=== PATIENT | female | born 1945 | race Caucasian/White ===

== ENCOUNTER 2022-11-30 06:11 | Inpatient (IN) ==
--- NOTE | 2022-11-03 11:09 | PAT Medication Instructions ---
Medication Instructions Date of Service November 03, 2022 Home Medications acyclovir 400 mg tablet 400 mg PO BID ascorbic acid (vitamin C) 1,000 mg tablet (Vitamin C) 1 g PO BID cholecalciferol (vitamin D3) 125 mcg (5,000 unit) tablet (Vitamin D3) 125 mcg PO QAM coffee extract 100 mg-phosphatidyl serine 100 mg capsule (Neuriva Original) 1 cap PO QAM ferrous sulfate 325 mg (65 mg iron) capsule,extended release 65 mg PO QAM lutein 20 mg tablet 20 mg PO QAM magnesium oxide 250 mg PO QAM omeprazole 20 mg capsule,delayed release 20 mg PO QAM pantethine 300 mg tablet,extended release 300 mg PO BID vitamin E 400 unit tablet 400 mg PO QPM zinc 25 mg tablet 25 mg PO HS STOP taking 2 weeks before surgery (or as soon as possible if surgery is within 2 weeks) coffee extract 100 mg-phosphatidyl serine 100 mg capsule (Neuriva Original) 1 cap PO QAM lutein 20 mg tablet 20 mg PO QAM pantethine 300 mg tablet,extended release 300 mg PO BID vitamin E 400 unit tablet 400 mg PO QPM DO NOT take the morning of surgery ascorbic acid (vitamin C) 1,000 mg tablet (Vitamin C) 1 g PO BID cholecalciferol (vitamin D3) 125 mcg (5,000 unit) tablet (Vitamin D3) 125 mcg PO QAM ferrous sulfate 325 mg (65 mg iron) capsule,extended release 65 mg PO QAM magnesium oxide 250 mg PO QAM Take morning of surgery With a small sip of water, OTHERWISE NOTHING TO EAT OR DRINK AFTER MIDNIGHT: acyclovir 400 mg tablet 400 mg PO BID omeprazole 20 mg capsule,delayed release 20 mg PO QAM Take evening before surgery acyclovir 400 mg tablet 400 mg PO BID ascorbic acid (vitamin C) 1,000 mg tablet (Vitamin C) 1 g PO BID zinc 25 mg tablet 25 mg PO HS Other Notes If you have any questions please call us at [phone] or [phone] or [phone] or [phone]
--- NOTE | 2022-11-09 10:50 | Anesthesiology Consultation ---
Date of Service November 09, 2022 Assessment & Plan (1) Encounter for pre-operative examination: - awaiting [facility] PCP pre-operative appointment 11/11/22. - no fentanyl. Patient states she does not want fentanyl administered. This was marked in EMR and Stella with surgeon's office made aware. - Pt denies additional episodes of chest discomfort since regularly taking omeprazole. - PCP office note 10/18/22 [facility]: "...hospital follow-up...midsternal chest pain pressure heaviness that radiated into her back and into her jaw...given nitroglycerin with resolution of pain. Troponin in ED was 8 and then 6...with eating, she is still getting some chest pain and epigastric pain...started omeprazole about 4 days ago which is helping...continues to decline taking statin...ordered an Apo B and HS CRP..." - discharge summary 10/11/22 [facility]: "...admitted to a telemetry bed...remained chest-pain free...consulted cardiology who recommended a stress echo...negative...LDL was greater than 170...patient is hesitant to start a statin..." Chart Review Chart Review: Pending: Refer to Additional Notes / Consult section and Patient seen in Pre Admission Testing Teaching & Discussion Pre-Anesthesia Teaching/Discussion Notes: Instructed NPO after midnight before surgery, except medications with 15 cc of water. Medication instructions provided according to the PAT guidelines. History Surgery Operation Date: 11/30/22 07:45 Proposed Procedures p L4-S1 Revision Decompression and Fusion, Spinal Cord Monitoring - Srinivasa Johns DO Height/Weight Height: 5 ft 2 in Weight: 72.2 kg Allergies Allergy/AdvReac Type Severity Reaction Status Date / Time fentanyl AdvReac Severe patient Verified 11/09/22 10:48 does not want fentanyl, denies h/o allergy or rxn Medications Home Medications Medication Instructions Recorded Confirmed Last Taken acyclovir 400 mg tablet 400 mg PO BID 11/03/22 11/03/22 Unknown ascorbic acid (vitamin C) 1,000 mg 1 g PO BID 11/03/22 11/03/22 Unknown tablet (Vitamin C) cholecalciferol (vitamin D3) 125 125 mcg PO QAM 11/03/22 11/03/22 Unknown mcg (5,000 unit) tablet (Vitamin D3) coffee extract 100 mg-phosphatidyl 1 cap PO QAM 11/03/22 11/03/22 Unknown serine 100 mg capsule (Neuriva Original) ferrous sulfate 325 mg (65 mg 65 mg PO QAM 11/03/22 11/03/22 Unknown iron) capsule,extended release lutein 20 mg tablet 20 mg PO QAM 11/03/22 11/03/22 Unknown magnesium oxide 250 mg PO QAM 11/03/22 11/03/22 Unknown omeprazole 20 mg capsule,delayed 20 mg PO QAM 11/03/22 11/03/22 Unknown release pantethine 300 mg tablet,extended 300 mg PO BID 11/03/22 11/03/22 Unknown release vitamin E 400 unit tablet 400 mg PO QPM 11/03/22 11/03/22 Unknown zinc 25 mg tablet 25 mg PO HS 11/03/22 11/03/22 Unknown Past Medical History Medical History (Updated 11/09/22 @ 10:44 by Patricia Noyola PA-C) Acid reflux controlled, stable per pt CKD (chronic kidney disease) stage 3, GFR 30-59 ml/min Elevated cholesterol no meds Lichen sclerosus reason for daily acyclovir Restless leg syndrome Patient denies h/o stroke, seizures, heart attack, heart failure, DM, HTN, blood clots/DVTs or blood transfusions. Exercise / Class Metabolic Activity II 4-5 Yardwork/Stairs/Walk up hill (denies chest discomfort or shortness of breath with 1 FOS) Past Family History Family History Other No family history of adverse response to anesthesia Past Surgical History Surgical History H/O cervical spine surgery bone spurs removed>good rom History of carpal tunnel release right History of cataract surgery left/right History of colonoscopy History of esophagogastroduodenoscopy (EGD) History of lumbar surgery bone spurs removed History of tooth extraction S/P decompression of ulnar nerve at elbow right Past Anesthesia History No Hx of Anesthesia Complications and No Family Hx of Anesthesia Complications History of PONV No Hx of PONV and No Hx of Motion Sickness Social History Smoking Status: Never smoker Do You Dip or Chew Tobacco: No Hx Alcohol Use: No substance use type: does not use Review of Systems Snoring, denies witnessed apneas. Patient denies chest pain, shortness of breath, dyspnea on exertion, fever, c hills, cough, wheezing, or palpitations. Physical Exam Vital Signs Vitals BP 130/81 P 72 TEMP 98.1 SP02 98% on RA RESP 17 Physical Patient resting comfortably in chair in no acute distress, alert and oriented, responding appropriately throughout visit Full cervical extension range of motion without pain TMD 3.5 finger breadths Mallampati Score 2, small oral opening Dentition: implant left upper side, denies chipped or loose teeth, caps/crowns, or bridges Lungs: normal respiratory effort. Good air movement, clear throughout to auscultation, no adventitious breath sounds Cardiac: regular rate and rhythm, no murmurs noted Carotid arteries: negative bruit bilat Lab Results Anesthesia Preop Results Results Anesthesia Widget: WBC 4.87 K/ul (4.8-10.8) 11/09/22 Hgb 12.7 g/dl (12.0-16.0) 11/09/22 Hct 37.3 % (37.0-47.0) 11/09/22 Plt 191 K/uL (130-400) 11/09/22 PT 10.3 Seconds (9.0-12.0) 11/09/22 PTT 27.0 Seconds (21.0-31.0) 11/09/22 INR 0.9 (0.9-1.1) 11/09/22 Urine Color Yellow 11/09/22 Urine Appearance Clear (Clear) 11/09/22 Urine pH 8.0 (4.5-7.5) H 11/09/22 Urine Specific [place] 1.014 (1.000-1.030) 11/09/22 Urine Protein Negative (Negative) 11/09/22 Urine Glucose (UA) Negative (Negative) 11/09/22 Urine Ketones Negative (Negative) 11/09/22 Urine Blood Negative (Negative) 11/09/22 Urine Nitrite Negative (Negative) 11/09/22 Urine Bilirubin Negative (Negative) 11/09/22 Urine Urobilinogen Negative (Negative) 11/09/22 Urine Leukocyte Esterase Negative (Negative) 11/09/22 Blood Type A Positive 11/09/22 Antibody Screen NEGATIVE 11/09/22 Testing Laboratory Results 10/11/2022 SODIUM: 139 POTASSIUM: 4.2 CHLORIDE: 106 CO2: 25 BUN: 15 CREATININE: 0.9 GLUCOSE: 110 10/10/22 A1c: 5.6% Electrocardiogram Date: 10/10/22 NSR, rate 65 bpm High QRS voltage may be normal variant or due to lve Chest X-Ray Date: 10/10/22 *1view* No acute or suspicious findings Stress Test Date: 10/11/22 Negative for inducible ischemia MPHR 103% METS 8 Occasional PVCs EF 55-59% Mild aortic valve regurgitation Mild tricuspid regurgitation
[~2022-11-30 06:11] MED LIST: ACETAMINOPHEN 500 MG TAB PO SCH; CeleBREX 200 MG CAP PO SCH; GABAPENTIN 300 MG CAP PO SCH; LR 15ML/HR IV SCH; LR 60ML/HR IV SCH; ceFAZolin 2000MG 2,000 MG/15 ML SYR IV SCH
[2022-11-30] MEDS ORDERED: BUPIVACAINE/EPINEPHRINE 0.25% 1:200,000 30 ML VIAL ONE (07:07)
[2022-11-30] MEDS ORDERED: ceFAZolin 330 MG/ML 1 GM VIAL ONE (07:08)
[2022-11-30] MEDS ORDERED: MIDAZOLAM HCL 1 MG/ML 2ML VIAL ONE (07:19)
[2022-11-30] MEDS ORDERED: fentaNYL citrate PF 100 MCG/2 ML VIAL ONE (07:19)
[2022-11-30] MEDS ORDERED: NALOXONE HCL 0.4 MG/1 ML VIAL/CARP IV PRN ×2 (07:19→11:35)
[2022-11-30] MEDS ORDERED: HYDROmorphone INJ 1 MG/ML SYRINGE IV PRN ×2 (07:19→11:35)
[2022-11-30] MEDS ORDERED: LABETALOL HCL IV 5 MG/ML 20ML IV PRN (07:19)
[2022-11-30] MEDS ORDERED: ePHEDrine sulfate 50 MG/ML AMP IV PRN (07:19)
[2022-11-30] MEDS ORDERED: ATROPINE SULFATE 0.1 MG/ML 10ML SYR IV PRN (07:19)
[2022-11-30] MEDS ORDERED: PROMETHAZINE HCL 12.5 MG in SODIUM CHLORIDE 0.9% 50 ML IV PRN ×2 (07:19→11:35)
[2022-11-30] MEDS ORDERED: FLUMAZENIL 0.1 MG/1 ML 10 ML VIAL IV PRN (07:19)
[2022-11-30] MEDS ORDERED: ONDANSETRON INJ 2 MG/ML 2 ML VIAL IV PRN ×2 (07:19→11:35)
[2022-11-30] MEDS ORDERED: PROPOFOL IV EMULSION 10 MG/ML 20 ML VIAL IV ONE (07:31)
[2022-11-30] MEDS ORDERED: ONDANSETRON INJ 2 MG/ML 2 ML VIAL ONE (07:31)
[2022-11-30] MEDS ORDERED: LIDOCAINE 2% 2 ML VIAL/AMP(20MG/ML) INFIL ONE (07:31)
[2022-11-30] MEDS ORDERED: DEXAMETHASONE SOD INJ 4 MG/ML VIAL ONE (07:31)
--- NOTE | 2022-11-30 07:36 | History & Physical Bridge Note ---
Date of Service November 30, 2022 History & Physical Bridge Note I have examined the patient, reviewed the History & Physical and in the interval since the performance of the History & Physical I have noted the following changes of clinical significance: no changes noted
--- NOTE | 2022-11-30 07:36 | History & Physical Report ---
Date of Service November 30, 2022 Assessment & Plan (1) Neurogenic claudication due to lumbar spinal stenosis: History of Present Illness Chief Complaint: Back and bilateral leg pain Primary Care Provider: Veronica Amaral PA-C This is a 77-year-old female presents with chronic persistent back and leg pain after failing course of nonoperative care she is here for surgical intervention. Allergies Allergy/AdvReac Type Severity Reaction Status Date / Time fentanyl AdvReac Severe patient Verified 11/30/22 06:33 does not want fentanyl, denies h/o allergy or rxn Home Medications Medication Instructions Recorded Confirmed Type acyclovir 400 mg tablet 400 mg PO BID 11/03/22 11/30/22 History ascorbic acid (vitamin C) 1,000 mg 1 g PO BID 11/03/22 11/30/22 History tablet (Vitamin C) cholecalciferol (vitamin D3) 125 125 mcg PO QAM 11/03/22 11/30/22 History mcg (5,000 unit) tablet (Vitamin D3) coffee extract 100 mg-phosphatidyl 1 cap PO QAM 11/03/22 11/30/22 History serine 100 mg capsule (Neuriva Original) ferrous sulfate 325 mg (65 mg 65 mg PO QAM 11/03/22 11/30/22 History iron) capsule,extended release lutein 20 mg tablet 20 mg PO QAM 11/03/22 11/30/22 History magnesium oxide 250 mg PO QAM 11/03/22 11/30/22 History omeprazole 20 mg capsule,delayed 20 mg PO QAM 11/03/22 11/30/22 History release vitamin E 400 unit tablet 400 mg PO QPM 11/03/22 11/30/22 History zinc 25 mg tablet 25 mg PO HS 11/03/22 11/30/22 History Past Med/Surg History Medical History (Updated 11/30/22 @ 07:36 by Srinivasa Johns DO) Acid reflux controlled, stable per pt CKD (chronic kidney disease) stage 3, GFR 30-59 ml/min Elevated cholesterol no meds Lichen sclerosus reason for daily acyclovir Restless leg syndrome Surgical History H/O cervical spine surgery bone spurs removed>good rom History of carpal tunnel release right History of cataract surgery left/right History of colonoscopy History of esophagogastroduodenoscopy (EGD) History of lumbar surgery bone spurs removed History of tooth extraction S/P decompression of ulnar nerve at elbow right Family History Other No family history of adverse response to anesthesia Social History Smoking Status: Never smoker Second Hand Exposure: Yes (in the past "late smoked"); Do You Dip or Chew Tobacco: No; Hx Alcohol Use: No Preferred Language: British Director Financial Systems Required: No Beliefs That Will Affect Care: None Current Living Situation: Spouse Feels Safe at Home: Yes Safety Concerns: Feels Safe At This Time Assistive Devices: Glasses Physical Exam Physical Exam: Patient is alert and oriented Heart regular rhythm Lungs clear Results & Data Results & Data Vital Signs (Past 12 Hours) Vital Signs Temp Pulse Resp BP Pulse Ox O2 Del Method 11/30/22 06:36 37 C 70 18 128/72 98 Room Air
--- NOTE | 2022-11-30 07:43 | History & Physical Bridge Note ---
Date of Service November 30, 2022 History & Physical Bridge Note I have examined the patient, reviewed the History & Physical and in the interval since the performance of the History & Physical I have noted the following changes of clinical significance: no changes noted Revision decompression fusion L4-S1
[2022-11-30] MEDS ORDERED: FLOSEAL HEMOSTATIC MATRIX 10ML TOP ONE (08:16)
[2022-11-30] MEDS ORDERED: SUGAMMADEX SODIUM 200 MG/2 ML VIAL IV ONE (09:02)
--- NOTE | 2022-11-30 09:07 | Operative Report ---
Post Operative Report Pre & Post Diagnosis Operation Date: 11/30/22 07:45 Pre-Op Diagnosis: Neurogenic claudication due to lumbar spinal stenosis Lumbar spondylolisthesis L4-5 Post-Op Diagnosis: Same I identified the patient and participated in the time-out.: Yes Procedure Operation Date: 11/30/22 07:45 Actual Procedures #1 revision decompression bilateral medial facetectomies and foraminotomies L3- L4 L4-5. #2 posterior spinal fusion L4-5. #3 placement posterior instrumentation L4-5 per #4 interbody fusion L4-5 #5 placement of Spira 13 x 26 mm cage at L4-5 per #6 placement locally harvested morselized autograft in the posterior gutters. #7 placement of I factor combined with V toss in the posterior gutters and interbody space. Surgeon Srinivasa Johns, Protection Manager Elina Barnes Estimated Blood Loss 50 Findings Consistent with Post-Op Diagnosis Specimens None Indications This is a 77-year-old female presents above-mentioned diagnosis after failed course of nonoperative care is here for surgical invention Description of Procedure Patient was met with identified informed consent obtained. Patient was then taken to the operative suite underwent a patient placed in a prone position on the [place] table top Jay[place]ob frame. All bony promises well-padded eyes inspect ed to ensure no external pressure placed upon the. This point the lumbar spine was prepped and draped in a sterile fashion. Sharp dissection with the assistance of Bovie cautery to form down to and exposing the remaining lamina and transverse processes of L4-L5. I then performed a revision complete laminectomy of L4 partial laminectomy of L3 including bilateral medial facetectomies and foraminotomies addressing severe spinal stenosis. Pedicle screws were then placed in L4-5 bilaterally with assistance of fluoroscopy and appropriately sized ren placed. By way of a trans foraminal approach on the right a complete discectomy of L for L5 was performed endplates guided to subcortically bone and a 13 x 26 mm Spira cage with I factor tapped the position. The rods were then compressed locked into final position bilaterally. The transverse processes of L4-L5 then burred to subcortical bleeding bone. I factor bone of the test and locally harvested morselized autograft was placed in the posterior gutters. 15 round MIRIAN drain inserted. The incision was then closed with 1 Vicryl to fascia 2-0 Vicryl subcutaneously and 4 Monocryl for final skin closure. Steri-Strips sterile dressing placed. Patient waken taken to PACU stable condition. Please note spinal cord monitoring was utilized at the procedure no changes noted. Lastly Elina Barnes was present at the entire surgery and while the patient positioning complex portion of the surgery and fascial closure. Please note we had considered the L5-S1 level for fusion. It was very stable intraoperatively and demonstrated no evidence of vacuum phenomenon or stenosis and subsequently elected to preserve this region. I attest to the content of the Intraoperative Record and any orders documented therein. Any exceptions are noted below.
[2022-11-30] MEDS: fentaNYL citrate PF 100 MCG/2 ML VIAL IV PRN ×4 (09:41→09:56)
--- NOTE | 2022-11-30 10:00 | Fluoroscopy Report ---
FL lumbar spine 2-3V CLINICAL HISTORY: L4-L5 DECOMP/FUSION COMPARISON STUDY: None. FLUOROSCOPY TIME: 16 seconds. Ka, r: 11.18 mGy FLUOROSCOPIC IMAGES: 2 FINDINGS: Fluoroscopy was provided during L4-L5 discectomy, posterior decompression and bilateral ped icle screw fusion. The hardware is intact. IMPRESSION: Fluoroscopy provided during L4-L5 discectomy, posterior decompression and bilateral pedi teressa screw fusion. ACT 112: Negative or not required by law. Electronically signed by: Nithin Solares M.D. 11/30/2022 9:59 AM
--- NOTE | 2022-11-30 10:10 | Anesthesiology Progress Note ---
Date of Service November 30, 2022 Anesthesia Post Procedure Vital Signs Vital Signs: Temp Pulse Pulse Resp BP Pulse Ox O2 Del Method 11/30/22 10:05 36.3 C L 76 14 130/71 98 Nasal Cannula 11/30/22 09:55 82 20 135/79 99 Nasal Cannula 11/30/22 09:45 79 12 145/76 H 92 Room Air 11/30/22 09:35 93 H 15 152/91 H 100 Oxymask 11/30/22 09:25 36.8 C 96 H 16 161/80 H 99 Oxymask 11/30/22 06:36 37 C 70 18 128/72 98 Room Air O2 Flow Rate 11/30/22 10:05 2 11/30/22 09:55 2 11/30/22 09:45 11/30/22 09:35 4 11/30/22 09:25 6 11/30/22 06:36 Pain Intensity Lower Back: Pain Intensity: 2 Transfer of Care Handoff Completed per policy Notes Mental Status: alert / awake / arousable Patient Amnestic to Procedure: Yes Nausea / Vomiting: adequately controlled Pain: adequately controlled Airway Patency, RR, SpO2: stable & adequate BP & HR: stable & adequate Hydration State: stable & adequate Anesthetic Complications: no major complications apparent
[2022-11-30] MEDS ORDERED: hydrOXYzine HCl 25 MG TAB PO PRN (11:35)
[2022-11-30] MEDS ORDERED: LORazepam 2 MG/1 ML VIAL IV PRN (11:35)
[2022-11-30] MEDS ORDERED: DO NOT ADMINISTER FLU VACCINE PRN (11:35)
[2022-11-30] MEDS ORDERED: traMADol HCL 50 MG TABLET PO PRN (11:35)
[2022-11-30] MEDS ORDERED: DO NOT ADMINISTER PNEUMOCOCCAL VACCINE PRN (11:35)
[2022-11-30] MEDS ORDERED: METOCLOPRAMIDE HCL INJ 5 MG/ML 2 ML VIAL IV PRN (11:35)
[2022-11-30] MEDS ORDERED: LORazepam 0.5 MG TAB PO PRN (11:35)
[2022-11-30] MEDS ORDERED: diphenhydrAMINE Capsule 25 MG CAP PO PRN (11:35)
[2022-11-30] MEDS ORDERED: ACETAMINOPHEN 500 MG TAB PO PRN (11:35)
[2022-11-30] MEDS ORDERED: ONDANSETRON 4 MG OD TAB PO PRN (11:35)
[2022-11-30] MEDS ORDERED: SOD PHOSPHATE/SOD BIPHOSPHATE ENEMA 132 ML BTL PR PRN (11:35)
[2022-11-30] MEDS ORDERED: FAMOTIDINE 20 MG TAB PO PRN (11:35)
[2022-11-30] MEDS ORDERED: ACETAMINOPHEN 1,000 MG/100 ML VIAL IV PRN (11:35)
[2022-11-30] MEDS ORDERED: ALUMINUM/MAGNESIUM SUSP 30 ML UDC PO PRN (11:35)
[2022-11-30] MEDS ORDERED: MAGNESIUM HYDROXIDE SUSP 30 ML UDC PO PRN (11:35)
[2022-11-30] MEDS ORDERED: bisacodyL 10 MG SUPP PR PRN (11:35)
[2022-11-30] MEDS ORDERED: HYDROmorphone INJ 0.5 MG/0.5 ML SYR IV PRN (11:35)
[2022-11-30] MEDS: oxyCODONE HCL IR 5 MG TAB (IMMEDIATE RELEASE) PO PRN ×3 (12:21→21:38)
[2022-11-30] MEDS: LACTATED RINGER'S 1,000 ML IV SCH ×2 (12:22→21:40)
--- NOTE | 2022-11-30 12:42 | Hospitalist Consultation ---
Date of Consultation November 30, 2022 Assessment & Plan (1) Neurogenic claudication due to lumbar spinal stenosis: - Pain management, bowel regimen and DVT ppx per the primary team - PT/OT consults - Follow am CBC to monitor for acute blood loss, last hgb was 12.7, recheck with am labs - Ambulate to chair this evening, anticipate caceres out this evening (2) CKD (chronic kidney disease) stage 3, GFR 30-59 ml/min: - Chronic, Stable - Check BMP today as none in records here to establish a baseline (3) Lichen sclerosus: - May continue acyclovir 400 mg BID for such - Chronic, stable DVT ppx: teds, scd CODE: FULL Thank you for involving us in the care of Mrs. Parikh. Please do not hesitate to call with questions or concerns. At this time medicine service will follow along. Supervising Physician Co-Signing Physician Notes I have seen and discussed the case with the collaborating BRADEN. I agree with the above H&P. I have reviewed and confirmed the patients medical history, the findings on physical examination, and the patients diagnosis and treatment plan with Devika FELICIANO and agree with the information documented. In short, Ms Parikh is a 77 year old woman with stable chronic comobidities now s/p spinal fusion on 11/30 for whom comanagement was consulted for medication management. At this time, Ms. Parikh can resume all home medications as prescribed. Dispo contingent on PT/OT and discretion of Ortho-spine service. History of Present Illness Reason for Consultation: Post op medical management Requesting Physician: Dr. Johns Attending Physician: Srinivasa Johns, History of Present Illness This is a 77 yo F with PMHx of CKD stage III, HLD, lichen sclerosis, restless leg, GERD, presents to the hospital for routine revision decompression bilat medial facetectomies and foraminotomies L3-L5, lumbar decompression fusion of L4-L5 by Dr. Johns on 11/30/22. PT has been taking acyclovir for lichen sclerosis twice daily for about 10 years from her PCP. Pt reports doing well. She has mild back pain with ache, but no other pain. No numbness, tingling into lower extremities, pt can bend both knees. Tolerated lunch without issues, last BM was this morning. She uses metamucil twice daily at baseline for issues with constipation, and requests this is ordered during her stay. She denies any other acute complaints. Allergies Allergy/AdvReac Type Severity Reaction Status Date / Time fentanyl AdvReac Severe patient Verified 11/30/22 06:33 does not want fentanyl, denies h/o allergy or rxn Home Medications Medication Instructions Recorded Confirmed Type acyclovir 400 mg tablet 400 mg PO BID 11/03/22 11/30/22 History ascorbic acid (vitamin C) 1,000 mg 1 g PO BID 11/03/22 11/30/22 History tablet (Vitamin C) cholecalciferol (vitamin D3) 125 125 mcg PO QAM 11/03/22 11/30/22 History mcg (5,000 unit) tablet (Vitamin D3) coffee extract 100 mg-phosphatidyl 1 cap PO QAM 11/03/22 11/30/22 History serine 100 mg capsule (Neuriva Original) ferrous sulfate 325 mg (65 mg 65 mg PO QAM 11/03/22 11/30/22 History iron) capsule,extended release lutein 20 mg tablet 20 mg PO QAM 11/03/22 11/30/22 History magnesium oxide 250 mg PO QAM 11/03/22 11/30/22 History omeprazole 20 mg capsule,delayed 20 mg PO QAM 11/03/22 11/30/22 History release vitamin E 400 unit tablet 400 mg PO QPM 11/03/22 11/30/22 History zinc 25 mg tablet 25 mg PO HS 11/03/22 11/30/22 History oxycodone 5 mg tablet 5 mg PO Q6H PRN pain #30 tabs 11/30/22 Rx psyllium husk 3.4 gram/5.4 gram 1 tsp PO BID 11/30/22 11/30/22 History oral powder (Metamucil) tramadol 50 mg tablet 50 mg PO Q6H PRN pain, moderate 11/30/22 Rx #30 tabs Patient History Medical History (Updated 11/30/22 @ 13:25 by Vale Fortune PA-C) Acid reflux controlled, stable per pt CKD (chronic kidney disease) stage 3, GFR 30-59 ml/min Elevated cholesterol no meds Lichen sclerosus reason for daily acyclovir Restless leg syndrome Surgical History H/O cervical spine surgery bone spurs removed>good rom History of carpal tunnel release right History of cataract surgery left/right History of colonoscopy History of esophagogastroduodenoscopy (EGD) History of lumbar surgery bone spurs removed History of tooth extraction S/P decompression of ulnar nerve at elbow right Family History Other No family history of adverse response to anesthesia Social History Smoking Status: Never smoker Second Hand Exposure: Yes (in the past "late smoked"); Do You Dip or Chew Tobacco: No; Hx Alcohol Use: No Preferred Language: Hungarian Dental Assistant Medical Assistant Required: No Beliefs That Will Affect Care: None Current Living Situation: Spouse Feels Safe at Home: Yes Safety Concerns: Feels Safe At This Time Assistive Devices: Glasses Review of Systems Review of Systems: Constitutional: No fever, sweats or chills Eyes: No diplopia, no worsening or blurred vision ENT: normal hearing, no trouble swallowing Respiratory: No cough, sputum, dyspnea at rest or on exertion Cardiovascular: No chest pain, tightness or palpitations Abdomen: No pain, nausea, vomiting, diarrhea or constipation Musculoskeletal: No joint pain, calf pain, swelling Back: ache in lower back, no other pain Neurologic: No weakness, numbness/tingling, or balance problems Psychiatric: No anxiety or depression Skin: No rash or itch Physical Exam Physical Exam: General: awake, alert, no apparent distress Head: Normocephalic, atraumatic ENT: PERRL, EOMI, no pharyngeal exudate, mucous membranes moist Chest: Clear to auscultation, on room air, no adventitious breath sounds Cardiac: Regular rate and rhythm, no murmur, no JVD, normal peripheral pulses, good capillary refill Abdominal: NABS x 4 quadrants, soft, nondistended, nontender to palpation, no rebound or guarding Back: dressing c/d/i, MIRIAN drain in place draining bloody outs Extremities: Normal inspection, no peripheral edema or erythema, calfs nontender to palpation Psych: Normal mood and affect Neuro: AAO x 3, strength intact bilaterally and rated 5/5, no motor deficits, speech is clear, no peripheral sensory deficits Results & Data Results & Data Vital Signs (Past 12 Hours) Vital Signs Temp Pulse Pulse Resp BP Pulse Ox O2 Del Method 11/30/22 12:28 36.4 C L 79 15 145/72 H 95 Room Air 11/30/22 11:57 36.3 C L 73 16 134/65 94 Room Air 11/30/22 11:25 36.4 C L 67 16 127/67 94 Room Air 11/30/22 11:15 84 16 124/69 93 Room Air 11/30/22 11:00 64 16 134/66 93 Room Air 11/30/22 10:45 73 18 134/68 93 Room Air 11/30/22 10:30 70 20 131/71 93 Room Air 11/30/22 10:15 78 22 135/69 99 Nasal Cannula 11/30/22 10:05 36.3 C L 76 14 130/71 98 Nasal Cannula 11/30/22 09:55 82 20 135/79 99 Nasal Cannula 11/30/22 09:45 79 12 145/76 H 92 Room Air 11/30/22 09:35 93 H 15 152/91 H 100 Oxymask 11/30/22 09:25 36.8 C 96 H 16 161/80 H 99 Oxymask 11/30/22 06:36 37 C 70 18 128/72 98 Room Air O2 Flow Rate 11/30/22 12:28 11/30/22 11:57 11/30/22 11:25 11/30/22 11:15 11/30/22 11:00 11/30/22 10:45 11/30/22 10:30 11/30/22 10:15 2 11/30/22 10:05 2 11/30/22 09:55 2 11/30/22 09:45 11/30/22 09:35 4 11/30/22 09:25 6 11/30/22 06:36
[2022-11-30] MEDS: ceFAZolin 2000MG 2,000 MG/15 ML SYR IV SCH ×2 (15:59→23:57)
[2022-11-30] MEDS ORDERED: NON-FORMULARY MEDICATION (Zinc 25 mg Tablet) PO SCH (21:00)
[2022-11-30] MEDS: DOCUSATE SODIUM/SENNA 50/8.6MG TAB PO SCH (21:32)
[2022-11-30] MEDS: TOCOPHERYL, DL-ALPHA 400 UNITS 180 MG CAP PO SCH (21:32)
[2022-11-30] MEDS: ASCORBIC ACID 500 MG TAB PO SCH (21:32)
[2022-11-30] MEDS: ACYCLOVIR 400 MG TAB PO SCH (21:33)
[2022-11-30] MEDS: PSYLLIUM or GUAR GUM FIBER POWDER PACKET PO SCH (22:00)
[2022-12-01] MEDS: oxyCODONE HCL IR 5 MG TAB (IMMEDIATE RELEASE) PO PRN ×3 (05:31→21:19)
[2022-12-01] MEDS ORDERED: POLYETHYLENE (MIRALAX) 17 GM PACK PO SCH (06:00)
[2022-12-01 06:51] LABS: Basophils # (auto) 0.02 K/uL (0.00-0.20); Basophils % (auto) 0.2 %; Eosinophils # (auto) 0.05 K/uL (0.00-0.50); Eosinophils % (auto) 0.5 %; Hematocrit (blood only) 32.6 % (37.0-47.0); Hemoglobin 11.2 g/dl (12.0-16.0); Immature Granulocytes # (auto) 0.04 K/uL (0.01-0.20); Immature Granulocytes % (auto) 0.4 %; Lymphocytes # (auto) 1.46 K/uL (1.20-3.40); Lymphocytes % (auto) 13.6 %; Mean Corpuscular Hemoglobin 31.5 pg (25.0-34.0); Mean Corpuscular Hgb Conc 34.4 g/dL (32.0-36.0); Mean Corpuscular Volume 91.8 fL (80.0-100.0); Mean Platelet Volume 14.4 fL (9.4-12.4); Monocytes # (auto) 1.31 K/uL (0.11-0.59); Monocytes % (auto) 12.2 %; Neutrophils # (auto) 7.85 K/uL (1.40-6.50); Neutrophils % (auto) 73.1 %; Platelet Count 156 K/uL (130-400); RDW Coefficient of Variation 12.1 % (11.5-14.5); RDW Standard Deviation 41.1 fL (36.4-46.3); Red Blood Count 3.55 M/uL (4.20-5.40); White Blood Count 10.73 K/ul (4.8-10.8)
[2022-12-01 07:15] LABS: BUN Creatinine Ratio 11.9 (10-20); Calcium 8.8 mg/dl (8.6-10.3); Creatinine Clr Calc Pharmacy 53.8 ml/min; Est GFR (African American) 78.8 ml/min
--- NOTE | 2022-12-01 08:31 | Orthopedic Progress Note ---
Date of Service December 01, 2022 Assessment & Plan (1) Neurogenic claudication due to lumbar spinal stenosis: Plan: This time initiate physical therapy monitor her MIRIAN output hopefully discharge home in the next few days. Admission and Anticipated Discharge Date Admission Date: November 30, 2022 Subjective Back pain controlled leg pain markedly improved Physical Exam Physical Exam: Patient is in the chair at the bedside appears comfortable. Is consented testing. Results & Data Vital Signs (Past 12 Hours) Vital Signs Temp Pulse Resp BP Pulse Ox O2 Del Method 12/01/22 07:47 36.4 C L 71 15 109/68 97 Room Air 12/01/22 03:18 36.6 C 76 16 107/64 94 Room Air 11/30/22 23:02 36.4 C L 73 16 114/66 95 Room Air
[2022-12-01] MEDS: CHOLECALCIFEROL 5,000 UNITS 125 MCG TAB PO SCH (08:53)
[2022-12-01] MEDS: dexAMETHasone 6 MG in SYRINGE 0 ML IV SCH (08:53)
[2022-12-01] MEDS: ASCORBIC ACID 500 MG TAB PO SCH ×2 (08:53→21:19)
[2022-12-01] MEDS: ACYCLOVIR 400 MG TAB PO SCH ×2 (08:53→21:19)
[2022-12-01] MEDS: MAGNESIUM OXIDE 400 MG TAB PO SCH (08:53)
[2022-12-01] MEDS: FERROUS SULFATE 325 MG TAB PO SCH (08:53)
[2022-12-01] MEDS: PANTOprazole 40 MG TAB PO SCH (08:54)
[2022-12-01] MEDS ORDERED: NON-FORMULARY MEDICATION (Lutein 20 mg Tablet) PO SCH (09:00)
[2022-12-01] MEDS ORDERED: NON-FORMULARY MEDICATION (Coffee Xt-Phosphatidyl Serine [Neuriva Original] 100-100 mg Caps PO SCH (09:00)
--- NOTE | 2022-12-01 11:58 | Hospitalist Progress Note ---
Date of Service December 01, 2022 Assessment & Plan (1) Neurogenic claudication due to lumbar spinal stenosis: Plan: -POD #1 s/p revision decompression bilateral medial facetectomies and foraminotomies L3-L4 L4-5. #2 posterior spinal fusion L4-5. #3 placement post erior instrumentation L4-5 per #4 interbody fusion L4-5 #5 placement of Spira 13 x 26 mm cage at L4-5 per #6 placement locally harvested morselized autograft in the posterior gutters. #7 placement of I factor combined with V toss in the posterior gutters and interbody space. - Pain management, bowel regimen and DVT ppx per the primary team - PT/OT consults - H/H stable with hgb 11.2 (12.7 yesterday) - Ambulate to chair this evening, anticipate caceres out this evening (2) CKD (chronic kidney disease) stage 3, GFR 30-59 ml/min: Plan: - Chronic, Stable - Check BMP today as none in records here to establish a baseline (3) Lichen sclerosus: Plan: - May continue acyclovir 400 mg BID for such - Chronic, stable DVT ppx: mary ann, scd CODE: FULL Thank you for involving us in the care of Mrs. Parikh. Please do not hesitate to call with questions or concerns. At this time medicine service will follow along. Admission and Anticipated Discharge Date Admission Date: November 30, 2022 Supervising Physician Co-Signing Physician Notes Patient seen and examined independently. Discussed with above provider. She is comfortably sitting up on the chair at the side of the bed. Reports passing gas; no bowel movement daily. PT OT Possible DC in a.m. Subjective Seen and examined in 305-1. Resting comfortably with some surgical site discomfort. No pain or numbness in lower extremities. Resting comfortably. Denies any fever, chills, lightheadedness, headache, chest pain, shortness of breath, nausea, vomiting, abdominal pain, dysuria. Passing flatus but no post-op bowel movement. Review of Systems Review of Systems: At least ten systems reviewed and negative except as noted in the HPI. Physical Exam Physical Exam: Gen: WD/WN, NAD, sitting in bedside chair, A&Ox3, obese HEENT: Normocephalic, atraumatic, conjunctivae moist, sclerae anicteric, mucous membranes moist Lung: Clear to Auscultation bilaterally, no wheezes/rales/rhonchi Heart: Regular rate, regular rhythm, no murmurs, rubs, or gallops Abdomen: Soft, NT, ND +BS x 4 Extremities: +spinal dressing c/d/i. MIRIAN drain visualized, no edema Skin: Warm, no rash Results & Data Results & Data Vital Signs (Past 12 Hours) Vital Signs Temp Pulse Resp BP Pulse Ox O2 Del Method 12/01/22 07:47 36.4 C L 71 15 109/68 97 Room Air 12/01/22 03:18 36.6 C 76 16 107/64 94 Room Air Laboratory Results Short CBC 12/01/22 Range/Units 05:58 WBC 10.73 (4.8-10.8) K/ul Hgb 11.2 L (12.0-16.0) g/dl Hct 32.6 L (37.0-47.0) % Plt Count 156 (130-400) K/uL BMP 12/01/22 05:58 Sodium 139 Potassium 4.0 Chloride 107 Carbon Dioxide 26 BUN 10 Creatinine 0.84 Glucose 102 H Calcium 8.8 Diagnostic Findings Lumbar Spine X-Ray 11/30/22 00:00 FL lumbar spine 2-3V CLINICAL HISTORY: L4-L5 DECOMP/FUSION COMPARISON STUDY: None. FLUOROSCOPY TIME: 16 seconds. Ka, r: 11.18 mGy FLUOROSCOPIC IMAGES: 2 FINDINGS: Fluoroscopy was provided during L4-L5 discectomy, posterior decompression and bilateral pedicle screw fusion. The hardware is intact. IMPRESSION: Fluoroscopy provided during L4-L5 discectomy, posterior decompression and bilateral pedicle screw fusion. ACT 112: Negative or not required by law. Electronically signed by: Nithin Solares M.D. 11/30/2022 9:59 AM
[2022-12-01] MEDS: PSYLLIUM or GUAR GUM FIBER POWDER PACKET PO SCH ×2 (12:35→21:20)
[2022-12-01 13:18] VITALS: RESP 16
[2022-12-01 21:00] VITALS: PULSE 75
[2022-12-01] MEDS: TOCOPHERYL, DL-ALPHA 400 UNITS 180 MG CAP PO SCH (21:19)
[2022-12-01] MEDS: DOCUSATE SODIUM/SENNA 50/8.6MG TAB PO SCH (21:19)
[2022-12-02 07:32] VITALS: BP 114/71; TEMP 97.9; O2SAT 96
[2022-12-02] MEDS: CHOLECALCIFEROL 5,000 UNITS 125 MCG TAB PO SCH (08:14)
[2022-12-02] MEDS: ASCORBIC ACID 500 MG TAB PO SCH (08:14)
[2022-12-02] MEDS: ACYCLOVIR 400 MG TAB PO SCH (08:15)
[2022-12-02] MEDS: FERROUS SULFATE 325 MG TAB PO SCH (08:15)
[2022-12-02] MEDS: MAGNESIUM OXIDE 400 MG TAB PO SCH (08:15)
[2022-12-02] MEDS: PANTOprazole 40 MG TAB PO SCH (08:15)
[2022-12-02] MEDS: PSYLLIUM or GUAR GUM FIBER POWDER PACKET PO SCH (08:15)
[2022-12-02] MEDS: dexAMETHasone 6 MG in SYRINGE 0 ML IV SCH (08:52)
[2022-12-02 09:10] LABS: Hematocrit (blood only) 33.3 % (37.0-47.0); Hemoglobin 11.2 g/dl (12.0-16.0); Mean Corpuscular Hemoglobin 31.1 pg (25.0-34.0); Mean Corpuscular Hgb Conc 33.6 g/dL (32.0-36.0); Mean Corpuscular Volume 92.5 fL (80.0-100.0); Mean Platelet Volume 14.6 fL (9.4-12.4); Platelet Count 161 K/uL (130-400); RDW Coefficient of Variation 12.2 % (11.5-14.5); RDW Standard Deviation 41.8 fL (36.4-46.3); White Blood Count 9.82 K/ul (4.8-10.8)
[2022-12-02 09:41] LABS: BUN Creatinine Ratio 17.2 (10-20); Calcium 8.8 mg/dl (8.6-10.3); Est GFR (African American) 75.5 ml/min; Est GFR (Non-African American) 65.2 ml/min; Potassium 3.9 mmol/L (3.5-5.1)
--- NOTE | 2022-12-02 09:57 | Discharge Summary ---
Date of Service December 02, 2022 Admission HPI Per Admitting Provider This is a 77-year-old female presents with chronic persistent back and leg pain after failing course of nonoperative care she is here for surgical intervention. Principal Diagnosis Lumbar spinal stenosis with neurogenic claudication Discharge Data Allergies Allergy/AdvReac Type Severity Reaction Status Date / Time fentanyl AdvReac Severe patient Verified 11/30/22 06:33 does not want fentanyl, denies h/o allergy or rxn Consultations 11/30/22 11:35 Consult Hospitalist Routine Procedures Performed Operation Date: 11/30/22 07:45 Actual Procedures p L4-L5 Revision Decompression and Fusion, Spinal Cord Monitoring(Not Applicable) - Srinivasa Johns DO Ordered Studies 11/30/22 FL lumbar spine 2-3V Routine Hospital Course (1) Neurogenic claudication due to lumbar spinal stenosis: Patient with lumbar decompression fusion tolerated this well was taken to the orthopedic for postoperative. Postop day 1 she was up and ambulating progressed to postop day #2. Pain well controlled. MIRIAN drain decreasing appropriately. Excellent strength testing. Simply discharged home. Discharge orders and instructions found in chart for further review. Total Time Total Time Spent Total Time Spent (In Minutes): 20 minutes Discharge Plan Discharge Items Patient Disposition: Home - Self-Care Reason For Visit: Spinal Stenosis, Lumbar Region without Neurogenic Discharge Diagnosis: Lumbar spinal stenosis with neurogenic claudication Activity: As commented below Non-emergency contact: Primary Care Provider Call non-emergency contact if: you have any medication questions Follow-up/Referrals: Veronica Amaral PA-C [Primary Care Provider] - Diet: Regular Addtl Attending Provider Instructions: ACTIVITY RECOMMENDATIONS: SELF CARE INSTRUCTIONS AFTER THORACIC/LUMBAR FUSIONS 1. You may walk to your tolerance. It is good exercise for your legs and back. Expect some back and intermittent leg aches and pains. 2. You may perform "counter-top" level activities (make a sandwich, ramiro with a project, etc.). 3. No bending or lifting of more than 10 pounds or back twisting of any nature (roll like a log when turning in bed). 4. You may ride in a car for 20-30 minutes at a time. No driving until after your first visit with your doctor. 5. Frequent changes of position and restricting sitting to 30 minutes at a time will help limit the amount of back spasms and stiffness you may experience. 6. You may discontinue the use of ambulatory aids (cane, crutches, etc.) once your strength and confidence allow. 7. You may washery engineer the shower and let water strike your incision when you arrive home at least once daily. Do not take a tub bath, sit in a hot tub or go into a swimming pool until after your first recheck in the office. SPECIAL CARE INSTRUCTIONS: VERY IMPORTANT TO READ AND REVIEW A. Your surgical incision has been closed with a cosmetic suture under the skin that will dissolve in about 6 weeks. In 14 days, you can use a pair of clean scissors and cut the suture that is left outside of the skin at the ends of your incision. 1. The small skin tapes can be removed 7 days after surgery if they have not fallen off by that point. 2. You may keep the wound open to air as much as possible to promote healing after post-op day number 5 unless told otherwise by your doctor. 3. If you think the wound looks like it is becoming infected (redness or worsening drainage) and/or you are experiencing fever, chill or worsening back pain and muscle spasms, contact the office so that we may evaluate you as soon as possible. B. Complications are uncommon, but please contact us if you have any signs or symptoms of: 1. wound infection (fever higher than 102.5 degrees F, redness, separation of wound, drainage, or increasing pain from the incision) 2. blood clots in legs (pain, swelling, redness and warmth in legs) 3. urinary tract infection (fever higher than 102.5 degrees F, burning upon urination or increased frequency of urination) 4. nerve problems (inability to walk on your toes or heels, numbness, loss of bowel or bladder control) 5. any other symptoms that concern you C. Please call the office at if you have any concerns or questions about your operation or recovery. D. No smoking! Smoking drastically decreases the chance of a solid fusion. E. Do not take any anti-inflammatory medications (Indocin, Advil, Motrin, Aspirin, Naprosyn, etc.) as these may inhibit the chance of a solid fusion. Tylenol is okay to take for pain. MANAGING PAIN AFTER SPINAL SURGERY 1. Narcotic medication is intended for short-term use and will be provided for surgical pain. Surgical pain usually lasts for a period of 4-6 weeks. Narcotic medication includes Percocet, Vicodin, Darvocet, Tylenol #3 or Lortab. 2. Longer-term pain is more appropriately treated with non-narcotic medication such as Tylenol ES. 3. Muscle spasm is not appropriately treated with narcotics. Muscle relaxers such as Soma, Flexeril or Skelaxin can be used along with Tylenol ES. 4. Remember that we all live with some "aches and pains". This is not unusual or uncommon after an injury or as we get older. a. Back pain is expected and may include muscle spasms for 4 to 6 weeks after surgery. The pain should gradually improve. If the pain worsens for no apparent reason, please contact the office. b. Intermittent leg pain may also be experienced and should not be concerned about unless it worsens for no apparent reason. If so, please contact the office. 5. We will provide appropriate medication within the normal guidelines of their prescribed use. We will also be very cautious and aware of potential abuse and extended duration of patients' medication needs. a. Pain medications are for your comfort and to assist with sleep and rest so that the tissue can heal. They are not provided in order to return to normal activity and should not be used through the day. To do so or worsening pain at night can result from ongoing tissue damage and development of tolerance to the prescribed medicine. 6. Please allow 2-3 days to process refills. Prescriptions will not be mailed but must be picked up at the office. FOLLOW UP VISIT: Keep your scheduled follow-up appointment. Any questions, please call the office at . Pending Studies at Discharge: No Stand-Alone Forms: My [facility] [place]gone, Smoking Cessation Medications and DC Order Prescriptions: New tramadol 50 mg tablet 50 mg PO Q6H PRN (Reason: pain, moderate) Qty: 30 0RF oxycodone 5 mg tablet 5 mg PO Q6H PRN (Reason: pain) Qty: 30 0RF Continued ascorbic acid (vitamin C) [Vitamin C] 1,000 mg Tablet 1 g PO BID acyclovir 400 mg Tablet 400 mg PO BID zinc 25 mg Tablet 25 mg PO HS vitamin E 400 unit Tablet 400 mg PO QPM magnesium oxide 250 mg magnesium Tablet 250 mg PO QAM ferrous sulfate 325 mg (65 mg iron) Capsule, Extended Release 65 mg PO QAM cholecalciferol (vitamin D3) [Vitamin D3] 125 mcg (5,000 unit) Tablet 125 mcg PO QAM lutein 20 mg Tablet 20 mg PO QAM Rx Instructions: give with meal/snack Neuriva Original 100-100 mg Capsule 1 cap PO QAM omeprazole 20 mg Capsule,Delayed Release(Dr/Ec) 20 mg PO QAM Metamucil 3.4 gram/5.4 gram Powder 1 tsp PO BID Rx Instructions: mix into at least 4 oz water or juice before administering Discharge Orders: Discharge Order (Routine); Ordered 12/02/22 Ordered By: Srinivasa Johns Admission Data Admit Date/Time: 11/30/22 09:10 Attending Provider: Srinivasa Johns Admit Provider: Srinivasa Johns Primary Care Provider: Veronica Amaral Other Providers: Yomaira Meire ; Curtis De ; Malou Leach
[2022-12-02] MEDS: oxyCODONE HCL IR 5 MG TAB (IMMEDIATE RELEASE) PO PRN (12:59)
--- NOTE | 2022-12-02 13:33 | Hospitalist Progress Note ---
Date of Service December 02, 2022 Assessment & Plan (1) Neurogenic claudication due to lumbar spinal stenosis: Plan: -POD #2 s/p revision decompression bilateral medial facetectomies and foraminotomies L3-L4 L4-5. #2 posterior spinal fusion L4-5. #3 placement post erior instrumentation L4-5 per #4 interbody fusion L4-5 #5 placement of Spira 13 x 26 mm cage at L4-5 per #6 placement locally harvested morselized autograft in the posterior gutters. #7 placement of I factor combined with V toss in the posterior gutters and interbody space. - Pain management, bowel regimen and DVT ppx per the primary team - PT/OT consults - H/H stable with hgb 11.2 (2) CKD (chronic kidney disease) stage 3, GFR 30-59 ml/min: Plan: - Chronic, Stable - Cr 0.87 (3) Lichen sclerosus: Plan: - May continue acyclovir 400 mg BID for such - Chronic, stable DVT ppx: mary ann, scd CODE: FULL Thank you for involving us in the care of Mrs. Parikh. Please do not hesitate to call with questions or concerns. At this time medicine service will follow along. Admission and Anticipated Discharge Date Admission Date: November 30, 2022 Supervising Physician Co-Signing Physician Notes Patient seen and examined at bedside. Discussed with above provider. Denies shortness of breath, fever or chills. Voiding without any issues. No bowel movement yet. Discussed pharmacological and nonpharmacological methods for constipation. Subjective Seen and examined in 305-1. Resting comfortably in bedside chair with improvement to pain of surgical site. No pain or numbness in lower extremities. Ambulating without issue. Denies any fever, chills, lightheadedness, headache, chest pain, shortness of breath, nausea, vomiting, abdominal pain, dysuria. Pas sing flatus but no post-op bowel movement. Review of Systems Review of Systems: At least ten systems reviewed and negative except as noted in the HPI. Physical Exam Physical Exam: Gen: WD/WN, NAD, sitting in bedside chair, A&Ox3, obese HEENT: Normocephalic, atraumatic, conjunctivae moist, sclerae anicteric, mucous membranes moist Lung: Clear to Auscultation bilaterally, no wheezes/rales/rhonchi Heart: Regular rate, regular rhythm, no murmurs, rubs, or gallops Abdomen: Soft, NT, ND +BS x 4 Extremities: +spinal dressing c/d/i. MIRIAN drain visualized, no edema Skin: Warm, no rash Results & Data Results & Data Vital Signs (Past 12 Hours) Vital Signs Temp Pulse Resp BP Pulse Ox O2 Del Method 12/02/22 07:31 36.6 C 75 16 114/71 96 Room Air Laboratory Results Short CBC 12/02/22 Range/Units 07:47 WBC 9.82 (4.8-10.8) K/ul Hgb 11.2 L (12.0-16.0) g/dl Hct 33.3 L (37.0-47.0) % Plt Count 161 (130-400) K/uL BMP 12/02/22 07:47 Sodium 137 Potassium 3.9 Chloride 105 Carbon Dioxide 26 BUN 15 Creatinine 0.87 Glucose 91 Calcium 8.8 Diagnostic Findings Lumbar Spine X-Ray 11/30/22 00:00 FL lumbar spine 2-3V CLINICAL HISTORY: L4-L5 DECOMP/FUSION COMPARISON STUDY: None. FLUOROSCOPY TIME: 16 seconds. Ka, r: 11.18 mGy FLUOROSCOPIC IMAGES: 2 FINDINGS: Fluoroscopy was provided during L4-L5 discectomy, posterior decompression and bilateral pedicle screw fusion. The hardware is intact. IMPRESSION: Fluoroscopy provided during L4-L5 discectomy, posterior decompression and bilateral pedicle screw fusion. ACT 112: Negative or not required by law. Electronically signed by: Nithin Solares M.D. 11/30/2022 9:59 AM
== END 2022-12-02 15:04 | disposition home or self-care (01) | DRG 455 ==
LOC: ASU 06:11 → 3E 09:10